=== PATIENT | female | born 1950 | race Caucasian/White ===

== ENCOUNTER 2018-08-25 16:27 | Emergency (ER) | payer OTHER, BC ==
[2018-08-25 16:47] VITALS: BP 155/75; PULSE 63; TEMP 97.7; BMI 22.6
[2018-08-25] MEDS ORDERED: SODIUM CHLORIDE 1,000 ML IV STA (17:01)
[2018-08-25] MEDS ORDERED: ONDANSETRON 4 MG/2 ML VIAL IVPB ONE (17:01)
[2018-08-25] MEDS ORDERED: MECLIZINE HCL 25 MG TABLET (FP) PO ONE (17:18)
--- NOTE | 2018-08-25 17:33 | PDOC ---
History of Present Illness <Renetta Garnica - Last Filed: 08/25/18 17:43> - General History Source: Patient Exam Limitations: No Limitations <Jacqueline Rodriguez - Last Filed: 08/25/18 19:56> - History of Present Illness Initial Comments: 08/25/18 17:40 This is a 68 year old female with no significant past medical history, presents to the emergency department complaining of a dizziness and nausea since this morning. Patient states she felt dizzy upon getting out of bed this morning. She describes it as she is spinning. She notes it is most pronounced when she sits up from lying down or stands after being seated. Denies any symptoms when she sits still. Patient states she vomited twice during her trip to the ED. Patient reports falling yesterday in the snow, but denies head injury. Denies BARBOSA. Denies SOB. Denies fever or chills. Denies headaches, visual changes or hearing loss. Denies paresthesia. Allergies: seasonal.hx: Social drinker. Denies tobacco or recreational drug use. PCP:Dr. Yanez <Moustapha Noyola - Last Filed: 08/26/18 07:34> - General Chief Complaint: Nausea/Vomiting Stated Complaint: NAUSEA & VOMITING, DIZZINESS Time Seen by Provider: 08/25/18 16:29 Past History <Renetta Garnica - Last Filed: 08/25/18 17:43> <Jacqueline Rodriguez - Last Filed: 08/25/18 19:56> - Past Medical History COPD: No - Suicide/Smoking/Psychosocial Hx Smoking History: Never smoked Hx Alcohol Use: No Drug/Substance Use Hx: No Substance Use Type: None <Moustapha Noyola - Last Filed: 08/26/18 07:34> - Past Medical History Allergies/Adverse Reactions: Allergies Allergy/AdvReac Type Severity Reaction Status Date / Time No Known Allergies Allergy Verified 08/25/18 16:29 Home Medications: Ambulatory Orders Meclizine HCl 25 mg PO DAILY PRN #14 tablet 08/25/18 Review of Systems - Review of Systems Comments:: 08/25/18 17:41 GENERAL/CONSTITUTIONAL: No fever or chills. No weakness. HEAD, EYES, EARS, NOSE AND THROAT: No change in vision. No ear pain or discharge. No sore throat. CARDIOVASCULAR: No chest pain, no shortness of breath, no loss of consciousness RESPIRATORY: No cough, wheezing, or hemoptysis. GASTROINTESTINAL: +Nausea +Vomiting No diarrhea or constipation. GENITOURINARY: No dysuria, frequency, or change in urination. MUSCULOSKELETAL: No joint or muscle swelling or pain. No neck or back pain. SKIN: No rash NEUROLOGIC: +Dizziness. No vertigo, no change in strength/sensation. ENDOCRINE: No increased thirst. No abnormal weight change. HEMATOLOGIC/LYMPHATIC: No anemia, easy bleeding, or history of blood clots. ALLERGIC/IMMUNOLOGIC: No hives or skin allergy. <DennysMoustapha - Last Filed: 08/26/18 07:34> *Physical Exam - Vital Signs Last Vital Signs Temp Pulse Resp BP Pulse Ox 97.7 F 63 16 155/75 95 08/25/18 16:28 08/25/18 16:28 08/25/18 16:28 08/25/18 16:28 08/25/18 16:28 <Renetta Garnica - Last Filed: 08/25/18 17:43> - Vital Signs Last Vital Signs Temp Pulse Resp BP Pulse Ox 97.7 F 63 16 155/75 95 08/25/18 16:28 08/25/18 16:28 08/25/18 16:28 08/25/18 16:28 08/25/18 16:28 <Jacqueline Rodriguez - Last Filed: 08/25/18 19:56> - Vital Signs Last Vital Signs Temp Pulse Resp BP Pulse Ox 97.7 F 63 16 155/75 95 08/25/18 16:28 08/25/18 16:28 08/25/18 16:28 08/25/18 16:28 08/25/18 16:28 - Physical Exam Comments: 08/25/18 17:41 GENERAL: Awake, alert, and fully oriented, in no acute distress. HEAD: No signs of trauma EYES: PERRLA, EOMI, sclera anicteric, conjunctiva clear ENT: Auricles normal inspection, hearing grossly normal, nares patent, oropharynx clear without exudates. Moist mucosa NECK: Nontender, no stepoffs, Normal ROM, supple, no lymphadenopathy, JVD, or masses LUNGS: Breath sounds equal, clear to auscultation bilaterally. No wheezes, and no crackles HEART: Regular rate and rhythm, normal S1 and S2, no murmurs, rubs or gallops ABDOMEN: Soft, nontender, normoactive bowel sounds. No guarding, no rebound. No masses EXTREMITIES: Normal range of motion, no edema. No clubbing or cyanosis. No cords, erythema, or tenderness NEUROLOGICAL: Cranial nerves II through XII intact. 5/5 strength and sensation in all extremities, Normal speech, normal gait, normal cerebellar function SKIN: Warm, Dry, normal turgor, no rashes or lesions noted. <Ou,Moustapha - Last Filed: 08/26/18 07:34> Heart Score/ECG Review - ECG Impressions Comment:: 08/25/18 18:58 NSR, no CARLIE/STDs, no TWIs, axis wnl, intervals wnl , rate 61 <Ou,Moustapha - Last Filed: 08/26/18 07:34> ED Treatment Course - LABORATORY CBC & Chemistry Diagram: 08/25/18 17:25 08/25/18 17:25 - Medications Given in the ED: ED Medications Discontinued Medications Generic Name Dose Route Start Last Admin Trade Name Freq PRN Reason Stop Dose Admin Meclizine HCl 25 mg 08/25/18 17:18 08/25/18 17:39 Antivert - PO 08/25/18 17:19 25 mg ONCE ONE Administration Ondansetron HCl 4 mg 08/25/18 17:01 08/25/18 17:39 Zofran Injection IVPB 08/25/18 17:02 4 mg ONCE ONE Administration <Renetta Garnica - Last Filed: 08/25/18 17:43> - LABORATORY CBC & Chemistry Diagram: 08/25/18 17:25 08/25/18 17:25 - ADDITIONAL ORDERS Additional order review: Laboratory Results 08/25/18 08/25/18 08/25/18 17:25 17:25 17:25 Sodium 136 Potassium 3.9 Chloride 106 Carbon Dioxide 22 Anion Gap 8 BUN 18 Creatinine 0.7 Creat Clearance w eGFR > 60 Random Glucose 105 Calcium 8.8 Phosphorus 3.2 Magnesium 2.0 Total Bilirubin 0.8 AST 26 ALT 30 Alkaline Phosphatase 143 H Creatine Kinase 65 Troponin I < 0.03 Total Protein 6.7 Albumin 3.7 11/16/18 17:25 RBC 4.55 MCV 89.2 MCHC 33.0 RDW 12.5 MPV 10.2 Neutrophils % No Result Required. Lymphocytes % No Result Required. - Medications Given in the ED: ED Medications Discontinued Medications Generic Name Dose Route Start Last Admin Trade Name Patricia PRN Reason Stop Dose Admin Sodium Chloride 1,000 mls @ 1,000 mls/hr 08/25/18 17:01 08/25/18 17:39 Normal Saline - IV 08/25/18 18:00 1,000 mls/hr ASDIR STA Administration Meclizine HCl 25 mg 08/25/18 17:18 08/25/18 17:39 Antivert - PO 08/25/18 17:19 25 mg ONCE ONE Administration Ondansetron HCl 4 mg 08/25/18 17:01 08/25/18 17:39 Zofran Injection IVPB 08/25/18 17:02 4 mg ONCE ONE Administration <Jacqueline Rodriguez - Last Filed: 08/25/18 19:56> - LABORATORY CBC & Chemistry Diagram: 08/25/18 17:25 08/25/18 17:25 - RADIOLOGY Radiology Studies Ordered: Category Date Time Status HEAD CT WITHOUT CONTRAST [CT] Stat CT Scan 08/25/18 17:01 Ordered <Moustapha Noyola - Last Filed: 08/26/18 07:34> Medical Decision Making - Medical Decision Making 08/25/18 17:33 68 F with dizziness, nausea, and vomiting upon awakening today. Possible vertigo. However, pt in ED reports that her dizziness has improved. Now only has slight nausea. Suspect BPPV. Pt with no neuro deficits, no nystagmus at this time. No clinical s/s of CVA. Given h/o fall yesterday, will obtain CT head to r/o ICH. Also evaluate for ACS. - Labs, trop - CT head - EKG - IVF, zofran, meclizine 08/25/18 18:48 Labs wnl EKG normal, trop negative Pt reassessed after zofran, IVF, and meclizine - now with complete resolution of symptoms. Pt ambulatory in ED with steady gait. Denies dizziness. Denies nausea. CT scan negative Pt is well appearing, with normal vitals. Clinically stable for DC at this time. I discussed the physical exam findings, ancillary test results and final diagnoses with the patient. I answered all of the patient's questions. The patient was satisfied with the care received and felt comfortable with the discharge plan and treatment plan. The patient agrees to follow up with the primary care physician within 24-72 hours. <Moustapha Noyola - Last Filed: 08/26/18 07:34> *DC/Admit/Observation/Transfer - Attestations Scribe Attestion: 08/25/18 17:43 Documentation prepared by FITZ Dos Santos, acting as medical esthetician for Moustapha Noyola MD. <Renetta Garnica - Last Filed: 08/25/18 17:43> <JenniferJacquelinekrzysztof Lainez - Last Filed: 08/25/18 19:56> - Attestations Physician Attestion: 08/25/18 18:51 I, Dr. Moustapha Noyola MD, attest that this document has been prepared under my direction and personally reviewed by me in its entirety. I further attest, that it accurately reflects all work, treatment, procedures and medical decision -making performed by me. <Moustapha Noyola - Last Filed: 08/26/18 07:34> Diagnosis at time of Disposition: Vertigo, Fall - Discharge Dispostion Disposition: HOME Condition at time of disposition: Good - Prescriptions Prescriptions: Meclizine HCl 25 mg PO DAILY PRN #14 tablet PRN Reason: Vertigo - Referrals Referrals: Christopher Yanez MD [Primary Care Provider] - Rigo Izquierdo MD [Staff Physician] - Harsh Nava DO [Staff Physician] - - Patient Instructions Printed Discharge Instructions: DI for Vertigo Additional Instructions: You have vertigo. Take the meclizine as prescribed if you have recurrent dizziness. Follow up with our neurologist and ENT doctors for further evaluation. Call the numbers provided to make appointments. If you experience persistent dizziness, vomiting, headache, weakness or numbness in any extremity, chest pain, or any other concerning symptoms, return to the ER immediately. - Post Discharge Activity
[2018-08-25] MEDS ORDERED: MECLIZINE HCL 25 MG TABLET (FP) ONE (17:34)
[2018-08-25] MEDS ORDERED: ONDANSETRON 4 MG/2 ML VIAL ONE (17:34)
[2018-08-25 17:51] LABS: HEMATOCRIT 40.6 % (32.4-45.2); HEMOGLOBIN 13.4 GM/dl (10.7-15.3); MCH 29.5 pg (25.7-33.7); MEAN CELL VOLUME 89.2 fl (80-96); MEAN PLT VOLUME 10.2 fl (7.5-11.1); PLATELET COUNT 205 K/MM3 (134-434); RBC 4.55 M/mm3 (3.60-5.2); RDW 12.5 % (11.6-15.6); WHITE BLOOD COUNT 5.1 K/mm3 (4.0-10.8)
[2018-08-25 17:58] LABS: ALBUMIN 3.7 g/dl (3.5-5.0); ALK PHOS 143 U/L (32-92); ANION GAP 8 MMOL/L (8-16); BILIRUBIN,TOTAL 0.8 mg/dl (0.2-1.0); BLOOD UREA NITROGEN 18 mg/dl (7-18); CALCIUM 8.8 mg/dl (8.4-10.2); CHLORIDE 106 mmol/L (98-107); CO2 22 mmol/L (22-28); CREATININE 0.7 mg/dl (0.6-1.3); GLUCOSE,RANDOM 105 mg/dl (74-106); PHOSPHOROUS 3.2 mg/dl (2.5-4.6); POTASSIUM 3.9 mmol/L (3.5-5.1); SGOT/AST 26 U/L (10-42); SGPT/ALT 30 U/L (10-40); SODIUM 136 mmol/L (136-145); TOT PROT 6.7 g/dl (6.4-8.3)
[2018-08-25 18:26] LABS: PLATELET ESTIMATE ADEQUATE
--- NOTE | 2018-08-25 19:32 | PDOC ---
*Physical Exam - Vital Signs Last Vital Signs Temp Pulse Resp BP Pulse Ox 97.7 F 63 16 155/75 95 08/25/18 16:28 08/25/18 16:28 08/25/18 16:28 08/25/18 16:28 08/25/18 16:28 ED Treatment Course - LABORATORY CBC & Chemistry Diagram: 08/25/18 17:25 08/25/18 17:25 - ADDITIONAL ORDERS Additional order review: Laboratory Results 08/25/18 08/25/18 08/25/18 17:25 17:25 17:25 Sodium 136 Potassium 3.9 Chloride 106 Carbon Dioxide 22 Anion Gap 8 BUN 18 Creatinine 0.7 Creat Clearance w eGFR > 60 Random Glucose 105 Calcium 8.8 Phosphorus 3.2 Magnesium 2.0 Total Bilirubin 0.8 AST 26 ALT 30 Alkaline Phosphatase 143 H Creatine Kinase 65 Troponin I < 0.03 Total Protein 6.7 Albumin 3.7 08/25/18 17:25 RBC 4.55 MCV 89.2 MCHC 33.0 RDW 12.5 MPV 10.2 Neutrophils % No Result Required. Lymphocytes % No Result Required. - Medications Given in the ED: ED Medications Discontinued Medications Generic Name Dose Route Start Last Admin Trade Name Freq PRN Reason Stop Dose Admin Sodium Chloride 1,000 mls @ 1,000 mls/hr 08/25/18 17:01 08/25/18 17:39 Normal Saline - IV 08/25/18 18:00 1,000 mls/hr ASDIR STA Administration Meclizine HCl 25 mg 08/25/18 17:18 08/25/18 17:39 Antivert - PO 08/25/18 17:19 25 mg ONCE ONE Administration Ondansetron HCl 4 mg 08/25/18 17:01 08/25/18 17:39 Zofran Injection IVPB 08/25/18 17:02 4 mg ONCE ONE Administration Medical Decision Making - Medical Decision Making 08/25/18 19:[address] Noyola Follow-up on: CT head Pending lab(s): all normal, including lytes, troponin Pending radiology studies: CT head negative, no bleed or trauma. In summary [id number] with vertigo sx, improved with meclizine. vitals reviewed, wnl, reassuring. CT head negative for pathology return precautions discussed, f/u PCP and neuro, PRN meclizine for vertigo, suspecting peripheral etiology. DC in stable condition. pt verbalized understanding of impression and plan. 08/25/18 19:31 08/25/18 19:31 *DC/Admit/Observation/Transfer Diagnosis at time of Disposition: Vertigo, Fall - Discharge Dispostion Disposition: HOME Condition at time of disposition: Good Decision to Admit order: No - Prescriptions Prescriptions: Meclizine HCl 25 mg PO DAILY PRN #14 tablet PRN Reason: Vertigo - Referrals Referrals: Harsh Nava DO [Staff Physician] - Christopher Yanez MD [Primary Care Provider] - Rigo Izquierdo MD [Staff Physician] - - Patient Instructions Printed Discharge Instructions: DI for Vertigo Additional Instructions: You have vertigo. Take the meclizine as prescribed if you have recurrent dizziness. Follow up with our neurologist and ENT doctors for further evaluation. Call the numbers provided to make appointments. If you experience persistent dizziness, vomiting, headache, weakness or numbness in any extremity, chest pain, or any other concerning symptoms, return to the ER immediately. - Post Discharge Activity
--- NOTE | 2018-08-28 23:52 | EKG ---
Test Reason : Blood Pressure : / mmHG Vent. Rate : 061 BPM Atrial Rate : 061 BPM P-R Int : 168 ms QRS Dur : 082 ms QT Int : 438 ms P-R-T Axes : 036 056 050 degrees QTc Int : 440 ms NORMAL SINUS RHYTHM NORMAL ECG NO PREVIOUS ECGS AVAILABLE Confirmed by BIANKA HURTADO MD ([id number]) on 08/28/2018 11:52:09 PM Referred By: 0U Confirmed By:BIANKA HURTADO MD
== END 2018-08-25 19:41 | disposition home or self-care (01) ==
LOC: FER 16:27
DX: R42 Dizziness and giddiness (principal); W18.39XA Other fall on same level, initial encounter; Y93.89 Activity, other specified; Y92.410 Unspecified street and highway as the place of occurrence of the external cause
CPT/HCPCS: 36415; 70450-TC; 80053; 82550; 83735; 84100; 84484; 85025; 93005; 99283-25; J7030

== ENCOUNTER 2023-01-15 15:25 | Emergency (ER) | payer OTHER, BC ==
[2023-01-15 15:35] VITALS: BP 153/86; PULSE 87; RESP 18; TEMP 97.8; BMI 23.9
[2023-01-15] MEDS ORDERED: IBUPROFEN 400 MG TABLET (FP) PO ONE ×2 (15:58→16:03)
== END 2023-01-15 16:11 | disposition home or self-care (01) ==
LOC: FER 15:25
DX: M79.644 Pain in right finger(s) (principal); R22.31 Localized swelling, mass and lump, right upper limb
CPT/HCPCS: 99283-25

== ENCOUNTER 2023-04-22 16:05 | Emergency (ER) | payer OTHER, BC ==
[2023-04-22 16:25] VITALS: BP 124/86; PULSE 72; RESP 18; TEMP 98.4; BMI 24.0
[2023-04-22] MEDS ORDERED: MECLIZINE HCL 12.5 MG TABLET PO ONE (16:46)
[2023-04-22] MEDS ORDERED: MECLIZINE HCL 12.5 MG TABLET ONE (16:56)
[2023-04-22 17:18] LABS: HEMOGLOBIN 12.9 G/dL (10.7-15.3); MCH 30.4 pg (25.7-33.7); MCHC 34.1 g/dl (32.0-36.0); MEAN CELL VOLUME 89.1 fl (80-96); RBC 4.26 10^6/uL (3.60-5.2); WHITE BLOOD COUNT 6.3 10^3/uL (4.0-10.8)
[2023-04-22 17:23] LABS: PLATELET ESTIMATE ADEQUATE
[2023-04-22 17:24] LABS: BILIRUBIN,TOTAL 0.7 mg/dl (0.2-1); BLOOD UREA NITROGEN 18.3 mg/dl (7-18); CALCIUM 9.4 mg/dl (8.5-10.1); CREATININE 0.8 mg/dl (0.6-1.3); POTASSIUM 4.2 mmol/L (3.5-5.1); SGOT/AST 20.3 U/L (15-37); SGPT/ALT 14.8 U/L (7-52); TOT PROT 6.6 g/dl (6.4-8.2)
== END 2023-04-22 17:50 | disposition home or self-care (01) ==
LOC: FER 16:05
DX: R42 Dizziness and giddiness (principal); Z20.822 Contact with and (suspected) exposure to COVID-19
CPT/HCPCS: 0241U-QW; 36415; 80053; 85027; 99283-25

== ENCOUNTER 2024-08-18 15:57 | Emergency (ER) | payer OTHER, BC ==
[2024-08-18 16:18] VITALS: BP 156/79; PULSE 75; RESP 18; TEMP 98.1; BMI 23.9
== END 2024-08-18 16:45 | disposition home or self-care (01) ==
LOC: FER 15:57
DX: J40 Bronchitis, not specified as acute or chronic (principal); R05.9 Cough, unspecified; R09.82 Postnasal drip
CPT/HCPCS: 99283-25

== ENCOUNTER 2025-01-20 19:37 | Emergency (ER) | payer OTHER, BC ==
[2025-01-20 19:57] VITALS: BP 165/88; PULSE 76; RESP 16; TEMP 97.7; BMI 24.0
[2025-01-20] MEDS ORDERED: CEPHALEXIN MONOHYDRATE 500 MG CAPSULE (UD) ONE ×2 (20:07→20:40)
[2025-01-20] MEDS ORDERED: DIPHTH,PERTUSS(ACELL),TET 0.5 ML DISP.SYRIN IM ONE (20:08)
[2025-01-20] MEDS: CEPHALEXIN MONOHYDRATE 500 MG CAPSULE (UD) PO ONE ×2 (20:10→20:42)
[2025-01-20] MEDS: DIPHTH,PERTUSS(ACELL),TET 0.5 ML DISP.SYRIN IM ONE (20:12)
[2025-01-20] MEDS: BACITRACIN ZINC 15 GM TUBE TOPICAL OINTMENT TP ONE (20:42)
== END 2025-01-20 21:50 | disposition home or self-care (01) ==
LOC: FER 19:37
PROC: 3E0234Z Introduction of Serum, Toxoid and Vaccine into Muscle, Percutaneous Approach (ICD-10-PCS; principal; 2025-01-20)
DX: S01.81XA Laceration without foreign body of other part of head, initial encounter (principal); Z23 Encounter for immunization; W01.198A Fall on same level from slipping, tripping and stumbling with subsequent striking against other object, initial encounter
CPT/HCPCS: 70450-TC; 72125-TC; 90471; 90715; 99285-25

== ENCOUNTER 2025-03-18 15:07 | Emergency (ER) | payer OTHER, BC ==
[2025-03-18 15:12] VITALS: BP 134/70; PULSE 72; RESP 18; TEMP 98.2; BMI 25.7
== END 2025-03-18 16:23 | disposition home or self-care (01) ==
LOC: FER 15:07
DX: R50.9 Fever, unspecified (principal); R07.81 Pleurodynia; B34.9 Viral infection, unspecified; J02.9 Acute pharyngitis, unspecified; R05.9 Cough, unspecified; R22.0 Localized swelling, mass and lump, head
CPT/HCPCS: 0241U-QW; 93005; 99284-25